=== PATIENT | male | born 1995 | race Hispanic/Latino ===

== ENCOUNTER 2017-05-24 20:37 | Emergency (ER) | payer OTHER ==
[2017-05-24] MEDS: IBUPROFEN 600 MG TAB PO (22:21)
[2017-05-24] MEDS: METHOCARBAMOL 500 MG TAB PO (22:21)
== END 2017-05-24 22:22 | disposition home or self-care (01) ==
LOC: M ED 20:37
DX: M62.830 Muscle spasm of back (principal); Z88.1 Allergy status to other antibiotic agents; Z77.098 Contact with and (suspected) exposure to other hazardous, chiefly nonmedicinal, chemicals
CPT/HCPCS: 99282